=== PATIENT | male | born 1995 | race Caucasian/White ===

== ENCOUNTER 2023-03-05 17:51 | Outpatient (CLI) | payer OTHER, SELFPAY | END 2023-03-05 17:52 | disposition home or self-care (01) | PROVIDERS: PCP Nurse Practitioner Family; Visit Provider Nurse Practitioner Family | DX: R68.82 Decreased libido (principal); M25.50 Pain in unspecified joint; Z83.49 Family history of other endocrine, nutritional and metabolic diseases | CPT/HCPCS: 84443 ==

== ENCOUNTER 2023-03-22 15:47 | Outpatient (CLI) | payer MEDICAID, SELFPAY ==
--- NOTE | 2023-03-22 16:00 | CRLHL7_ITS ---
For Patients: As a result of the Century Cures Act, medical imaging exams and procedure reports are released immediately into your electronic medical record. You may view this report before your referring provider. If you have questions, please contact your health care provider. Indication: Headaches. Technique: Noncontrast axial CT of the paranasal sinuses with coronal reformats are provided. No comparisons. Findings: 3-4 millimeter mucosal thickening within the left frontal and right sphenoid sinus. 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 Trace inflammatory debris within the left sphenoid sinus the remainder of the visualized paranasal sinuses are clear. The ostiomeatal complexes are patent bilaterally. The visualized intraorbital contents appear within normal limits. Impression: 1. Mild inflammatory changes within the left frontal and right sphenoid sinuses. Please note that all CT scans at this facility use dose modulation, iterative reconstruction, and/or weight-based dosing when appropriate to reduce radiation dose to as low as reasonably achievable. Dictated by Brian Alvares MD @ 03/23/2023 11:37:52 AM (Electronically Signed)
== END 2023-03-22 15:48 | disposition home or self-care (01) ==
LOC: CT 15:48
PROVIDERS: PCP Nurse Practitioner Family; Visit Provider Nurse Practitioner Family
DX: R51.9 Headache, unspecified (principal); J32.2 Chronic ethmoidal sinusitis; J32.3 Chronic sphenoidal sinusitis
CPT/HCPCS: 70486

== ENCOUNTER 2023-04-02 17:13 | Outpatient (CLI) | payer MEDICAID, SELFPAY | END 2023-04-02 17:14 | disposition home or self-care (01) | LOC: KYNREF 17:14 | PROVIDERS: PCP Nurse Practitioner Family; Visit Provider Nurse Practitioner Family | DX: R68.82 Decreased libido (principal); F32.A Depression, unspecified; R13.10 Dysphagia, unspecified | CPT/HCPCS: 84403; 85651; 86039; 86140; 86431; 86812 ==